=== PATIENT | female | born 1990 | race Caucasian/White ===

== ENCOUNTER 2018-08-20 21:25 | Inpatient (IN) | payer OTHER, SELFPAY ==
[2018-08-20] MEDS ORDERED: Ondansetron PF 4 MG/2 ML Vial ONE (21:43)
[2018-08-20] MEDS ORDERED: Morphine 4 MG/ML VIAL ONE (21:43)
[2018-08-20 21:46] LABS: Bilirubin Negative (Negative); Blood, Urine Large (Negative); Clarity TURBID (Clear); Glucose, Urine (Dipstick) Negative (Negative); Leukocyte Large (Negative); Nitrite Positive (Negative); Protein, Urine (Dipstick) 100 mg/dL (Neg-Trace); Specific Gravity, Urine 1.013 (1.002-1.036); Urobilinogen 0.2 mg/dL (0.2-1.0); pH, Urine 6.5 (5.0-9.0)
[2018-08-20] MEDS ORDERED: Acetaminophen 325 MG TAB ONE (21:47)
[2018-08-20 21:48] LABS: Bacteria/HPF 4+ HPF (None Seen); Hyaline Casts/LPF 7-10 HYALINE CAST LPF (0-3 Hyaline)
[2018-08-20 22:01] LABS: #Lymphocytes 0.7 thou/uL (1.20-3.40); #Monocytes 0.5 thou/uL (0.11-0.59); #Neutrophils 9.2 thou/uL (1.40-6.50); %Basophils 0.3 % (0.0-1.0); %Eosinophils 0.3 % (0.0-10.0); %Lymphocytes 6.7 % (21.0-51.0); %Monocytes 4.4 % (0.0-10.0); %Neutrophils 88.2 % (42.0-75.0); Hemoglobin 13.5 g/dL (12.0-16.0); Mean Corpuscular HGB CONC 33.6 g/dL (32.0-36.0); Mean Corpuscular Hemoglobin 30.4 pg (27.0-31.0); Mean Corpuscular Volume 90.7 fL (78.0-98.0); Platelet Count 219 thou/uL (130-400); RBC Distribution Width 10.7 % (11.5-14.5); Red Blood Cell (RBC) Count 4.44 mill/uL (4.20-5.40); White Blood Cell (WBC) Count 10.4 thou/uL (4.8-10.8)
[2018-08-20 22:02] LABS: Squamous Epithelial 0-3 HPF (0-3)
--- NOTE | 2018-08-20 22:03 | RAD ---
CHEST ONE VIEW 08/20/18 HISTORY: Shortness of breath and sepsis. COMPARISON: None. FINDINGS: Lungs are clear. No pneumothorax or effusion. The cardiac silhouette and mediastinal contours within normal limits. No acute osseous abnormality. IMPRESSION: No acute intrathoracic abnormality. POS: HOME
[2018-08-20 22:14] LABS: BHCG - Serum Negative (NEGATIVE); Pregs Control Background? CLEAR/WHITE (CLR/WHITE); Pregs Control Bar Appear? YES (CONTROL BAR)
[2018-08-20] MEDS ORDERED: Sodium Chloride 0.9% 100 ML ONE (22:34)
[2018-08-20] MEDS ORDERED: cefTRIAXone\\ROCEPHIN 1 GM VIAL ONE (22:34)
[2018-08-20 22:46] LABS: ALT (SGPT) 17 U/L (8-55); AST (SGOT) 20 U/L (5-34); Albumin 4.5 g/dL (3.5-5.0); Alkaline Phosphatase 71 U/L (40-150); Anion Gap 14 mmol/L (10-20); BUN (Urea Nitrogen) 11 mg/dL (7.0-18.7); Calc. Creatinine Clearance 0 mL/min (70-130); Calcium 9.8 mg/dL (7.8-10.44); Carbon Dioxide 24 mmol/L (22-29); Chloride 101 mmol/L (98-107); Estimated GFR-MDRD 73; Globulin 3.2 g/dL (2.4-3.5); Glucose 137 mg/dL (70-105); Lipase 22 U/L (8-78); Potassium 3.5 mmol/L (3.5-5.1); Protein, Total 7.7 g/dL (6.0-8.3); Sodium 135 mmol/L (136-145)
[2018-08-20] MEDS ORDERED: Ketorolac Tromethamine 30 MG/ML VIAL ONE (23:29)
--- NOTE | 2018-08-20 23:53 | CT ---
ABDOMEN AND PELVIC CT SCAN WITH IV CONTRAST: 08/20/18 HISTORY: 27-year-old female with history of diffuse abdominal pain and fever. The lung bases appear clear. There appear to be several small cysts in the liver and some possible ve ry mild periportal edema. The gallbladder appears unremarkable. The pancreas, spleen, and adrenal gla nds unremarkable. Right and left renal upper collecting systems are slightly prominent and possibly slightly enhancing. This is nonspecific but could possibly be related to some mild pyelonephritis. There is some very payne btle renal parenchymal hypodensities bilaterally, which can also be associated with pyelonephritis. N o evidence for renal calculus or acute obstruction. No CT evidence for acute appendicitis. IUD wit hin the uterus. There is some cul-de-sac fluid. There are bilateral pars defects at L5-S1 with what a ppears to be some mild anterolisthesis. No evidence for abscess. IMPRESSION: Slightly prominent renal upper collecting systems with some questionable enhancement of the margin of the renal pelvises as well as some subtle hypodensities within both kidneys raising concern for bila teral pyelonephritis. Small hypodensities within the liver, possibly small cysts with what may be jojo e very mild periportal edema. IUD within the uterus. No evidence for other significant acute process. Evidence for pars defects at L5-S1 with at least moderate anterolisthesis of L5 on S1. POS: [facility]
[2018-08-21] MEDS ORDERED: Ondansetron ODT 4 MG TAB PO PRN (00:40)
[2018-08-21] MEDS ORDERED: Guaifenesin DM 100-10/5 ML UDCUP PO PRN (00:40)
[2018-08-21] MEDS ORDERED: Ondansetron PF 4 MG/2 ML Vial IVP PRN (00:40)
[2018-08-21] MEDS ORDERED: Calcium Carbonate 500 MG ChewTAB PO PRN (00:40)
[2018-08-21] MEDS ORDERED: Senokot S 8.6-50 MG TAB PO PRN (00:40)
[2018-08-21] MEDS ORDERED: Zolpidem Tartrate 5 MG TAB PO PRN (00:40)
[2018-08-21 01:56] VITALS: BMI 22.6
[2018-08-21] MEDS: Sodium Chloride 0.9% 1,000 ML IV SCH ×3 (02:42→19:41)
[2018-08-21 06:16] LABS: #Lymphocytes 1.2 thou/uL (1.20-3.40); #Monocytes 0.6 thou/uL (0.11-0.59); #Neutrophils 5.4 thou/uL (1.40-6.50); %Basophils 0.2 % (0.0-1.0); %Eosinophils 0.5 % (0.0-10.0); %Lymphocytes 16.8 % (21.0-51.0); %Monocytes 8.1 % (0.0-10.0); %Neutrophils 74.4 % (42.0-75.0); Hemoglobin 10.9 g/dL (12.0-16.0); Mean Corpuscular HGB CONC 33.5 g/dL (32.0-36.0); Mean Corpuscular Hemoglobin 30.8 pg (27.0-31.0); Mean Corpuscular Volume 91.8 fL (78.0-98.0); Mean Platelet Volume 7.8 fL (7.4-10.4); Platelet Count 158 thou/uL (130-400); RBC Distribution Width 10.7 % (11.5-14.5); Red Blood Cell (RBC) Count 3.53 mill/uL (4.20-5.40); White Blood Cell (WBC) Count 7.3 thou/uL (4.8-10.8)
[2018-08-21 06:41] LABS: Anion Gap 8 mmol/L (10-20); BUN (Urea Nitrogen) 9 mg/dL (7.0-18.7); Calc. Creatinine Clearance 119 mL/min (70-130); Calcium 7.9 mg/dL (7.8-10.44); Carbon Dioxide 23 mmol/L (22-29); Chloride 109 mmol/L (98-107); Estimated GFR-MDRD Greater than 90; Glucose 102 mg/dL (70-105); Potassium 3.6 mmol/L (3.5-5.1); Sodium 136 mmol/L (136-145)
[2018-08-21] MEDS: Famotidine 20 MG TAB PO SCH ×2 (08:22→19:41)
[2018-08-21] MEDS: Acetaminophen 325 MG TAB PO PRN ×2 (08:22→19:41)
--- NOTE | 2018-08-21 08:43 | HP ---
CHIEF COMPLAINT: Abdominal pain. HISTORY OF PRESENT ILLNESS: This is a 27-year-old female with history of juvenile rheumatoid arthritis, fibromyalgia, and lupus, presenting with abdominal pain, which has been ongoing for the past couple of weeks. Per the patient, she felt that she was about to have her periods, so she thought her abdominal pain was due to her having abdominal cramps from her periods. The patient, however, states that the pain has been ongoing and now she is having cloudy and foul-smelling urine. The patient has been feeling very hot and is having bilateral back pain. The patient states that she has not taken anything for her fever and her pain. The patient, at this point, denies any nausea, vomiting, chest pain, palpitations, dizziness, hematuria, hematochezia, melena, or rash. The patient endorses sharp abdominal pain and discomfort. REVIEW OF SYSTEMS: Positive for fever, shortness of breath, abdominal pain, and back pain. Otherwise, as documented in the HPI, all systems have been reviewed and are negative. PAST MEDICAL HISTORY: Juvenile rheumatoid arthritis, fibromyalgia, and lupus. PAST SURGICAL HISTORY: x1. PSYCHIATRIC HISTORY: Depression. SOCIAL HISTORY: The patient drinks occasionally. The patient denies any illicit drug use and denies any smoking history. ALLERGIES: THE PATIENT IS ALLERGIC TO . CURRENT MEDICATIONS: The patient does not take any medications. PHYSICAL EXAMINATION: VITAL SIGNS: The patient's blood pressure is 103/55, pulse is 113, respiratory rate of 18, temperature of 98.2, and O2 sat is 97% on room air. GENERAL: The patient is lying in bed. Does not appear to be in any acute distress. The patient is alert and oriented x3. HEENT: Normocephalic, atraumatic. Pupils are equally round and reactive to light. Extraocular movements are intact. No scleral icterus. No conjunctival pallor. Mucous membranes are moist. NECK: Trachea is midline. Full range of motion. Supple. No JVD. CARDIAC: Positive S1 and S2. The patient is tachycardic. ABDOMEN: Mild tenderness diffusely with deep palpation. BACK: Positive CVA tenderness bilaterally. EXTREMITIES: The patient has 5/5 upper extremity strength and 5/5 lower extremities strength. Good pulses at the upper and lower extremities bilaterally. NEUROLOGIC: Cranial nerves II through XII grossly intact. No neurologic deficits noted. SKIN: Warm, dry, and intact. PSYCH: Normal affect. DIAGNOSTIC DATA: A 12-lead EKG showed sinus tachycardia at a rate of 135. CT of the abdomen and pelvis shows finding of the upper renal collecting system concerning for bilateral pyelonephritis. LABORATORY DATA: WBC is 10.4, hemoglobin is 13.5, hematocrit is 40.3, and platelet count is 219. Chemistry is within normal limits. Urinalysis, positive for nitrites and positive for leukocyte esterases. ASSESSMENT AND PLAN: This is a 27-year-old female being admitted for, 1. Pyelonephritis. At this point, the patient has been started on IV antibiotics. We will continue the patient on IV antibiotics. We will continue IV hydration. We will monitor the patient closely. 2. History of fibromyalgia. We will continue the patient on her home medications and we will monitor the patient closely. 3. History of lupus. At this time, the patient is stable. We will continue the patient on her current medications at home. 4. History of juvenile rheumatoid arthritis. At this point, the patient is stable. We will continue the patient on her current management. 5. Deep vein thrombosis and gastrointestinal prophylaxis. Job ID: [id number]
[2018-08-21] MEDS: Famotidine/PF 20 mg/2ml Vial SLOW IVP SCH ×2 (08:56→19:40)
[2018-08-21] MEDS ORDERED: Iopamidol-370 76% 500 ML 1 ML ONE (09:00)
--- NOTE | 2018-08-21 12:18 | PRG ---
DATE OF SERVICE: 08/21/2018 SUBJECTIVE: The patient is seen and examined at bedside. She is feeling somewhat better, although she still has quite a bit of discomfort in her both flanks. OBJECTIVE: VITAL SIGNS: Blood pressure is 124/71, pulse is 101, temperature is 98.7, respiratory rate 14, and O2 saturation is 98% on room air. HEENT: Head is atraumatic and normocephalic. Eyes are PERRLA. Sclerae are nonicteric. Oral mucosa is moist. NECK: Supple. No lymphadenopathy. Thyroid is not palpable. LUNGS: Clear. HEART: S1, S2 normal. Tachycardic. No S3. No S4. ABDOMEN: Soft, nontender. LUNGS: Both lungs are tender to percussion. ABDOMEN: Bowel sounds are present. No organomegaly. EXTREMITIES: No clubbing, cyanosis, or edema. NEUROLOGIC: She is alert and oriented x4. There are no any sensory or motor deficits. Cranial nerves are intact. LABORATORY DATA: Labs showed a white count of 7.3, hemoglobin 10.9, hematocrit 32.4, platelet count is 158,000. Sodium of 136, potassium 3.6, chloride 109, CO2 of 23, BUN 9, creatinine 0.73, glucose 102, calcium 7.9. Microbiology: Blood cultures x2 negative. Influenza type A and B negative. IMPRESSION: 1. Bilateral pyelonephritis. The patient is on Cipro, IV fluids. 2. History of fibromyalgia. 3. History of lupus. 4. History of juvenile rheumatoid arthritis. PLAN: Plan is to continue current regimen with IV antibiotic, IV fluids, pain management, and fever control. Job ID: [id number]
[2018-08-22] MEDS: Sodium Chloride 0.9% 1,000 ML IV SCH ×2 (05:51→18:33)
[2018-08-22] MEDS: Famotidine/PF 20 mg/2ml Vial SLOW IVP SCH ×2 (08:40→20:41)
[2018-08-22] MEDS: Famotidine 20 MG TAB PO SCH ×2 (08:40→20:45)
[2018-08-22] MEDS: Acetaminophen 325 MG TAB PO PRN (08:48)
--- NOTE | 2018-08-22 13:41 | EKG ---
Test Reason : SEPSIS Blood Pressure : / mmHG Vent. Rate : 135 BPM Atrial Rate : 135 BPM P-R Int : 138 ms QRS Dur : 082 ms QT Int : 282 ms P-R-T Axes : 075 001 069 degrees QTc Int : 423 ms Sinus tachycardia RSR' or QR pattern in V1 suggests right ventricular conduction delay Borderline ECG Confirmed by JOSUÉ FREEDMAN DO ([id number]), editorial writer DEAN GODWIN ([id number] on 08/22/2018 1:41:25 PM Referred By: Confirmed By:JOSUÉ FREEDMAN DO
--- NOTE | 2018-08-22 14:20 | PDOC.PN ---
- Subjective Encounter Start Date: 08/22/18 Encounter Start Time: 14:17 Subjective: feels better but constipated - Objective Resuscitation Status - Order Detail: 08/21/18 00:40 Resuscitation Status Routine Resuscitation Status: FULL: Full Resuscitation MAR Reviewed: Yes Vital Signs & Weight: Vital Signs (12 hours) Temp Pulse Resp BP Pulse Ox 08/22/18 12:06 97.4 F L 67 16 105/60 100 08/22/18 12:00 100 08/22/18 08:42 99.6 F 96 15 115/62 96 08/22/18 04:00 98.2 F 83 16 103/58 L 98 Weight Admit Weight 144 lb 4.8 oz Weight 144 lb 4.8 oz I&O: 08/21/18 08/22/18 08/23/18 06:59 06:59 06:59 Intake Total 600 2111 Output Total 500 400 Balance 100 1711 Result Diagrams: 08/21/18 06:03 08/21/18 06:03 Additional Labs: Microbiology 08/21/18 08:30 Nasal swab Influenza Types A,B Direct EIA - Final 08/20/18 21:34 Urine voided Urine Culture - Final Escherichia coli 08/20/18 21:40 Venous blood - Right Arm Blood Culture - Preliminary NO GROWTH AT 48 HOURS 08/20/18 21:40 Venous blood - Left Arm Blood Culture - Preliminary NO GROWTH AT 48 HOURS Phys Exam - Physical Examination Constitutional: NAD HEENT: PERRLA, moist MMs, sclera anicteric, oral pharynx no lesions Neck: no nodes, no JVD, supple, full ROM Respiratory: no wheezing, no rales, no rhonchi, clear to auscultation bilateral Cardiovascular: RRR, no significant murmur, no rub Gastrointestinal: soft, non-tender, no distention, positive bowel sounds Musculoskeletal: no edema, pulses present Neurological: non-focal, normal sensation, moves all 4 limbs Psychiatric: normal affect, A&O x 3 Skin: no rash Dx/Plan (1) UTI (urinary tract infection) Status: Acute (2) Pyelonephritis Code(s): N12 - TUBULO-INTERSTITIAL NEPHRITIS, NOT SPCF ACUTE OR CHRONIC Status: Acute (3) Juvenile rheumatoid arthritis Code(s): M08.00 - UNSP JUVENILE RHEUMATOID ARTHRITIS OF UNSPECIFIED SITE Status: Acute (4) Lupus Code(s): M32.9 - SYSTEMIC LUPUS ERYTHEMATOSUS, UNSPECIFIED Status: Acute (5) Fibromyalgia Status: Acute - Plan out of bed/ambulate, DVT proph w/SCDs E coli sensitive to Abx being used.Hd stable -[facility] -: no sepsis * . Review of Systems - Review of Systems Constitutional: negative: fever, chills, sweats, weakness, malaise, other Respiratory: negative: Cough, Dry, Shortness of Breath, Hemoptysis, SOB with Excertion, Pleuritic Pain, Sputum, Wheezing Cardiovascular: negative: chest pain, palpitations, orthopnea, paroxysmal nocturnal dyspnea, edema, light headedness, other Gastrointestinal: negative: Nausea, Vomiting, Abdominal Pain, Diarrhea, Constipation, Melena, Hematochezia, Other Genitourinary: negative: Dysuria, Frequency, Incontinence, Hematuria, Retention , Other Musculoskeletal: negative: Neck Pain, Shoulder Pain, Arm Pain, Back Pain, Hand Pain, Leg Pain, Foot Pain, Other Neurological: negative: Weakness, Numbness, Incoordination, Change in Speech, Confusion, Seizures, Other - Medications/Allergies Allergies/Adverse Reactions: Allergies Allergy/AdvReac Type Severity Reaction Status Date / Time Pertussis Vaccines Allergy Verified 03/26/17 19:00 Sulfa (Sulfonamide Allergy Verified 03/26/17 19:00 Antibiotics) Medications: Current Medications Acetaminophen (Tylenol) 650 mg PO Q4H PRN PRN Reason: Headache/Fever/Mild Pain (1-3) Last Admin: 08/22/18 08:48 Dose: 650 mg Bisacodyl (Dulcolax) 10 mg PO DAILYPRN PRN PRN Reason: Constipation Calcium Carbonate (Tums) 1,000 mg PO Q4H PRN PRN Reason: Heartburn or Indigestion Famotidine (Pepcid) 20 mg SLOW IVP Q12HR GIORGI Last Admin: 08/22/18 08:40 Dose: 20 mg Famotidine (Pepcid) 20 mg PO BID [facility] Last Admin: 08/22/18 08:40 Dose: Not Given Guaifenesin/Dextromethorphan (Robitussin Dm) 15 ml PO Q4H PRN PRN Reason: Cough Sodium Chloride (Normal Saline 0.9%) 1,000 mls @ 100 mls/hr IV .Q10H [facility] Last Admin: 08/22/18 05:51 Dose: 1,000 mls Ciprofloxacin/Dextrose 400 mg/ (Device) 200 mls @ 200 mls/hr IVPB 0300,1500 [facility] Last Admin: 08/22/18 02:29 Dose: 200 mls Ondansetron HCl (Zofran Odt) 4 mg PO Q6H PRN PRN Reason: Nausea/Vomiting Ondansetron HCl (Zofran) 4 mg IVP Q6H PRN PRN Reason: Nausea/Vomiting Senna/Docusate Sodium (Senokot S) 2 tab PO BIDPRN PRN PRN Reason: Constipation Sodium Chloride (Flush - Normal Saline) 10 ml IVF Q12HR [facility] Last Admin: 08/22/18 08:40 Dose: 10 ml Sodium Chloride (Flush - Normal Saline) 10 ml IVF PRN PRN PRN Reason: Saline Flush Zolpidem Tartrate (Ambien) 5 mg PO HSPRN PRN PRN Reason: Insomnia
[2018-08-22] MEDS: Bisacodyl 5 MG TAB PO PRN (20:40)
[2018-08-23] MEDS: Sodium Chloride 0.9% 1,000 ML IV SCH (03:43)
[2018-08-23] MEDS: Famotidine 20 MG TAB PO SCH (09:13)
[2018-08-23] MEDS: Famotidine/PF 20 mg/2ml Vial SLOW IVP SCH (09:14)
[2018-08-23] MEDS: Bisacodyl 5 MG TAB PO PRN (09:16)
[2018-08-23] MEDS ORDERED: Polyethylene Glycol 3350 17 GM Packet PO SCH (10:15)
[2018-08-23] MEDS: Acetaminophen 325 MG TAB PO PRN (11:46)
[2018-08-23 11:52] VITALS: BP 122/77; TEMP 98.7
--- NOTE | 2018-08-23 18:36 | DIS ---
DATE OF ADMISSION: 08/21/2018 DATE OF DISCHARGE: 08/23/2018 CONDITION AT THE TIME OF DISCHARGE: Stable and improved. DISCHARGE DISPOSITION: Home. PRIMARY CARE PHYSICIAN: None. DISCHARGE DIAGNOSES: 1. Urinary tract infection. 2. Pyelonephritis. 3. History of juvenile rheumatoid arthritis and lupus for the patient. DISCHARGE MEDICATIONS: 1. Ciprofloxacin 500 mg p.o. b.i.d. for 7 more days. 2. Florastor 250 mg daily for 10 days. 3. MiraLax 17 g p.o. p.r.n. 4. Zofran p.r.n. IN-HOUSE CONSULTATION: None. PROCEDURES DONE IN THE HOSPITAL: CT scan of the abdomen and pelvis upon presentation, which shows slightly prominent in the upper collecting system with questionable enhancement of the margin of the renal pelvis as well as some subtle hypodensities within both kidneys raising concern for bilateral pyelonephritis. HISTORY OF PRESENTING ILLNESS: Ms. Kennedy is an otherwise healthy 27-year-old female, who does not take any medications at home and reported history of juvenile rheumatoid arthritis, fibromyalgia, and lupus, who presented to the ER with the complaints of abdominal pain with cloudy and foul-smelling urine and bilateral back pain. She was found to have bilateral pyelonephritis on the CT scan done in the emergency room. She did not have evidence of sepsis at the time of presentation. Please see admission history and physical for further details. HOSPITAL COURSE: The patient was admitted and started on empiric IV antibiotics. Blood culture and urine culture were obtained. Urine culture was positive for Escherichia coli, which was resistant only to Bactrim, otherwise pansensitive. Blood cultures were negative. The patient had unremarkable hospital course. Her symptoms improved quickly. She was monitored an extra day on IV antibiotic and as of this morning, she has no medical complaints. She will be discharged home. She was seen and examined prior to discharge. PHYSICAL EXAMINATION: This morning; VITAL SIGNS: Temperature 98.7, pulse of 97, respirations 16, saturating 100% on room air, blood pressure 122/77. GENERAL: In no acute distress. Awake, alert, and oriented x3. Her boyfriend or is in the bed with her every time I examine her. He answers most of the questions for her. CHEST: Clear to auscultation bilaterally. Rate rhythm is regular. Minimal CVA tenderness bilaterally. PLAN: I have encouraged her to take her medications and establish care at [facility] for getting a primary care physician for followup. Job ID: [id number]
[2018-08-23] MEDS ORDERED: Ciprofloxacin 500 MG TAB PO SCH (20:00)
[2018-08-24] MEDS ORDERED: Saccharomyces boulardii 250 MG CAP PO SCH (09:00)
== END 2018-08-23 13:59 | disposition home or self-care (01) | DRG 690 ==
LOC: ERS 21:25 → 2NO 08-21 01:10 → T4-B 08-22 11:27
PROVIDERS: ADMIT Internal Medicine; ATTEND Internal Medicine
DX: N12 Tubulo-interstitial nephritis, not specified as acute or chronic (principal); M79.7 Fibromyalgia; M32.9 Systemic lupus erythematosus, unspecified; M08.00 Unspecified juvenile rheumatoid arthritis of unspecified site; B96.20 Unspecified Escherichia coli [E. coli] as the cause of diseases classified elsewhere
CPT/HCPCS: 36415; 71045; 74177; 80048; 80053; 81003; 81015; 83605; 83690; 84703; 85025; 87040; 87077; 87086; 87186; 87804; 90471; 90686; 93005; 96361; 96365; 96375; G0008; J0696; J0744; J1885; J2270; J2405; J7050; Q9967; S0028

== ENCOUNTER 2021-03-18 20:51 | Emergency (ER) | payer SELFPAY ==
[2021-03-19 14:35] LABS: SARS-CoV-2 PCR by NAA DETECTED (NotDetected)
== END 2021-03-19 00:20 | disposition home or self-care (01) ==
LOC: ERS 20:51
DX: U07.1 COVID-19 (principal); M08.00 Unspecified juvenile rheumatoid arthritis of unspecified site
CPT/HCPCS: 93005; U0003; U0005